=== PATIENT | male | born 1975 | race Caucasian/White ===

== ENCOUNTER → 2018-12-01 | Day surgery (SDC) | payer OTHER ==
[~2018-12-01] MED LIST: CYMBALTA20 MG PO; NORCO 5-325 TA1 EACH PO; XANAX 0.25 MG0.25 MG PO
--- NOTE | 2018-12-02 10:48 | OP ---
[address] [address] OPERATIVE REPORT Name: LESLIE BERNABE Room: [facility]#: [id number] Admission: 12/01/18 Attend Phys: Ulisses Ramirez DO Discharge: Date of : 77 Report #: [id number] THIS REPORT FOR: //name// CC: Ulisses CORDERO MD DATE OF SERVICE: 12/01/2018 REFERRING PHYSICIAN: Dr. Luiz Cordero. PREOPERATIVE DIAGNOSIS: Left inguinal hernia. POSTOPERATIVE DIAGNOSIS: Left indirect inguinal hernia incarcerated. PROCEDURE: Da Griffin robotic-assisted laparoscopic left inguinal hernia repair with large Bard 3DMax mesh. SURGEON: Ulisses Ramirez DO CLAIM REPRESENTATIVE: Dr. Nesha Minaya. ANESTHESIA: General endotracheal. ESTIMATED BLOOD LOSS: Less than 20 mL. COMPLICATIONS: None. DESCRIPTION OF PROCEDURE: After obtaining proper consents and discussing risks and complications with the patient, he was taken to the operating room and laid in the supine position, administered general endotracheal anesthesia. He was then prepped and draped in the usual fashion. A timeout was performed. We confirmed the appropriate patient and procedure. The site had been marked in the preoperative holding area. Preoperative antibiotics were given. SCDs were in place. He was secured to the bed appropriately. All necessary equipment was within the operating room. We then made a small supraumbilical skin incision with a #11 scalpel blade. This was carried down through the skin and the subcutaneous tissue using electrocautery for hemostasis. This was in the area of his previous laparoscopic cholecystectomy incision. There was some scar tissue throughout and he is somewhat morbidly obese, so the abdominal wall was quite thick. We dissected all the way down to the fascia using electrocautery and once the fascia was encountered, it was incised along the midline and then grasped with Karine clamps. The peritoneum was then bluntly opened using a hemostat. We then placed 2-0 Vicryl sutures to secure the camera port, which was then inserted. Once the camera port was inserted, insufflation was begun. Once insufflation was complete, full visual [place] [id number] OPERATIVE REPORT Name: LESLIE BERNABE Room: [facility]#: [id number] Admission: 12/01/18 Attend Phys: Ulisses Ramirez, Discharge: Date of : 77 Report #: [id number] organs was performed. This revealed a left inguinal hernia that contained the sigmoid colon. There was no right inguinal hernia identified. The left inguinal hernia was indirect. I then placed two more trocars, one in the right upper quadrant and one in the left upper quadrant. We then docked the da Griffin robot. Once the robot was docked, we inserted a bipolar fenestrated grasper in the left upper quadrant and laparoscopic scissors in the right upper quadrant. I then went on console. Once on console, first we reduced the hernia back into the peritoneal cavity. There was some epiploica from the sigmoid colon which were incarcerated down into the hernia, these were freed using electrocautery. I opened the peritoneum from the median umbilical ligament laterally to the ASIS. Once this was opened, I then developed the preperitoneal space using blunt dissection all the way down to the pubic ramus and below it medially. I then started the dissection laterally and came back into the hernia sac, which was dissected free. The hernia sac was completely dissected free from the cord structures and reduced back into the peritoneal cavity. I then placed a large Bard 3DMax mesh. The mesh was sutured in place to Emre's ligament and then also medial and laterally to the inferior epigastric vessels using a 2-0 Vicryl suture. I then closed the peritoneal flap using a 2-0 absorbable V-Loc suture. Once this was complete, I then rescrubbed and went back to the patient's bedside where the robot was undocked. Prior to that, we also had removed a cord lipoma which was placed into an Endopouch. I then rescrubbed and went back to the patient's bedside where the robot was undocked. We then removed the cord lipoma through the right upper quadrant incision. I then used a PMI closure device to close the trocar site on both the right and left upper quadrant. We then closed the umbilical fascia after the trocar was removed using a 0 Vicryl suture. The skin incisions were all injected with 0.5% Marcaine without epinephrine and then closed using 4-0 Monocryl subcuticular stitches. Mastisol, Steri-Strips, sterile OpSite and pressure dressings were placed. The patient was awakened in the operating room and transported to recovery room in stable condition. <ELECTRONICALLY SIGNED> By: Ulisses Ramirez DO 12/02/18 [id number] 1227Ajong Ramirez DO /nt
--- NOTE | 2018-12-03 11:06 | PATH ---
[address] [address] PATHOLOGY RPT PROCEDURE Name: LESLIE BERNABE Room: [facility].#: [id number] Admission: 12/01/18 Date of : 77 Discharge: Report #: [id number] Path Case #: [id number] [facility] Accession Number: [id number] . 01 Material submitted: . inguinal area - LEFT INGUINAL CORD LIPOMA. Modifiers: left . 01 Clinical history: . Left inguinal hernia, symptomatic cholelithiasis . 02 Diagnosis: Left inguinal cord lipoma: - Incidental benign lymph node with fibrosis and calcification and benign fatty tissue consistent with "cord lipoma". (DOMINIC:javier; 12/02/2018) MBR/12/02/2018 . 02 Electronically signed: . Eyal Damon MD, Pathologist NPI- [id number] . 01 Gross description: . The specimen is received in formalin, labeled "Bernabe, Leslie, cord lipoma left" and consists of a membranous segment of pink tissue with attached yellow lobulated tissue measuring 7.8 x 4.0 x 1.0 cm. Sectioning reveals no gross lesions and sales representative adding machines sections are submitted in A1. (SDY; 12/01/2018) SYU/SYU . 02 Pathologist provided ICD-10: D17.6 . 02 CPT . 646436 Specimen Comment: A courtesy copy of this report has been sent to Specimen Comment: [phone], . Specimen Comment: Report sent to / DR HAMILTON Performed at: [address], [place], [place] [id number] MD Danial Browning MD Phone: [phone] Performed at: 02 [facility] [address], [place], [place] [id number] MD Eyal Damon MD Phone: [phone]
== END | disposition home or self-care (01) ==
LOC: M.SUR 06:19
DX: K40.30 Unilateral inguinal hernia, with obstruction, without gangrene, not specified as recurrent (principal); D17.6 Benign lipomatous neoplasm of spermatic cord; Z79.899 Other long term (current) drug therapy; Z79.891 Long term (current) use of opiate analgesic